=== PATIENT | female | born 1965 | race Caucasian/White ===

== ENCOUNTER → 2021-02-04 11:11 | Outpatient (CLI) | payer OTHER, SELFPAY ==
--- NOTE | 2021-02-04 11:13 | DI.MG.S_ITS ---
BILATERAL DIGITAL SCREENING MAMMOGRAM 3D/2D WITH CAD: 02/04/2021 Comparison is made to exams dated: 03/28/2017 mammogram, 03/01/2016 mammogram, and 02/16/2016 mammogram - [facility]. There are scattered fibroglandular elements in both breasts. Current study was also evaluated with a Computer Aided Detection (CAD) system. No significant masses, calcifications, or other findings are seen in either breast. There has been no significant interval change. IMPRESSION: NEGATIVE There is no mammographic evidence of malignancy. A 1 year screening mammogram is recommended. This exam was interpreted at Station ID: [id number]. NOTE: For mammograms, a report in lay terms will be sent to the patient. Approximately 15% of breast malignancies will not be visualized mammographically. In the management of a palpable breast mass, a negative mammogram must not discourage biopsy of a clinically suspicious lesion. Electronically Signed By: Julio collins/genaro:02/06/2021 08:51:52 letter sent: Normal Exam ACR BI-RADS Category 1: Negative [id number]
== END ==
PROVIDERS: PCP Family Medicine; Referring Provider Family Medicine; Visit Provider Family Medicine
DX: Z12.31 Encounter for screening mammogram for malignant neoplasm of breast (principal)
CPT/HCPCS: 77063; 77067

== ENCOUNTER → 2021-03-10 08:34 | Outpatient (CLI) | payer OTHER, SELFPAY ==
[2021-03-10] MEDS: COVID-19 VACC #3, MRNA(MOD) 50 MCG/0.25 ML VIAL IM (08:46)
== END ==
PROVIDERS: PCP Family Medicine; Visit Provider Internal Medicine
DX: Z23 Encounter for immunization (principal)
CPT/HCPCS: 0013A; 91301

== ENCOUNTER 2021-10-12 20:35 | Emergency (ER) | payer OTHER, SELFPAY ==
[2021-10-12] VITALS (13 sets, daily range): BP systolic 147–181; BP diastolic 80–91; PULSE 71–85; RESP 18–23; TEMP 36.7; O2SAT 96–99; BMI 27.3
--- NOTE | 2021-10-12 20:52 | DI.RAD.S_ITS ---
PROCEDURE: XR SHOULDER LT MIN 2V INDICATIONS: fall with deformity to shoulder TECHNIQUE: 3 views of the shoulder were acquired. COMPARISON: [facility], CR, XR SHOULDER LT MIN 2V, 10/12/2021, 22:03. FINDINGS: Bones: There is anterior dislocation of the left glenohumeral joint. There is mild depression along the superolateral aspect of the humeral head suggestive of a Hill-Sachs impaction fracture. No suspicious bony lesions. Visualized ribs appear intact. Soft tissues: There are small bony fragments along the inferior glenoid suggestive of a bony Bankart fracture. IMPRESSION: 1. Anterior dislocation of the left glenohumeral joint. 2. Suspected small Hill-Sachs lesion and small fracture fragments possibly from a bony Bankart. Consider follow-up CT if clinically indicated. Dictated by: Tariq Morse M.D. on 10/12/2021 at 22:45 Approved by: Tariq Morse M.D. on 10/12/2021 at 22:47
--- NOTE | 2021-10-12 20:53 | DI.RAD.S_ITS ---
PROCEDURE: XR RIBS LT MIN 3V W CXR1V INDICATIONS: fall with pain to ribs TECHNIQUE: Two views of the left ribs were acquired, along with a single view chest. COMPARISON: [facility], CR, XR SHOULDER LT MIN 2V, 10/12/2021, 20:54. [facility], CR, XR SHOULDER LT MIN 2V, 10/12/2021, 22:03. FINDINGS: Surgical changes and devices: None. Bones and chest wall: No displaced rib fracture identified. There is anteroinferior dislocation of the left glenohumeral joint. No suspicious bony lesions. Overlying soft tissues appear unremarkable. Lungs and pleura: No pleural effusions or pneumothorax. Lungs appear clear. Mediastinum: Mediastinal contours appear normal. Heart size is normal. IMPRESSION: 1. No displaced rib fracture identified. 2. Anteroinferior dislocation of the left glenohumeral joint. Recommend correlation with concurrent study of the shoulder. Dictated by: Tariq Morse M.D. on 10/12/2021 at 22:47 Approved by: Tariq Morse M.D. on 10/12/2021 at 22:48
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
[2021-10-12] MEDS: ONDANSETRON 4 MG/2 ML INJ IV (21:05)
[2021-10-12] MEDS: HYDROMORPHONE 0.5 MG INJ IV ×2 (21:05→21:40)
[2021-10-12] MEDS: propofoL 200 MG/20 ML VIAL 100 MG IV (21:55)
[2021-10-12] MEDS: propofoL 200 MG/20 ML VIAL 20 MG IV (22:01)
--- NOTE | 2021-10-12 22:04 | DI.RAD.S_ITS ---
PROCEDURE: XR SHOULDER LT MIN 2V INDICATIONS: post-reduction TECHNIQUE: 2 views of the shoulder were acquired. COMPARISON: [facility], CR, XR SHOULDER LT MIN 2V, 10/12/2021, 20:54. FINDINGS: Bones: There is interval reduction of the previously dislocated left glenohumeral joint. No discrete fracture identified on the current study. There is mild acromioclavicular joint degeneration. No suspicious bony lesions. Visualized ribs appear intact. Soft tissues: No suspicious soft tissue calcifications. IMPRESSION: 1. Interval reduction of the previously dislocated left glenohumeral joint. 2. Suspected Hill-Sachs and bony Bankart fractures seen on the prior study not visualized on the current exam. If clinical concern persists, consider follow-up CT. Dictated by: Tariq Morse M.D. on 10/12/2021 at 23:20 Approved by: Tariq Morse M.D. on 10/12/2021 at 23:21
[2021-10-12] MEDS: SODIUM CHLORIDE 0.9% 1,000 ML 125 ML IV (22:26)
--- NOTE | 2021-10-12 22:27 | PC.NURSE ---
Procedural sedation Propofol doses given as follows: 50mg @ 2155 20mg @ 2156 20mg @2157 10mg @2159 20mg @2201 All doses given IV push by Dr. Guerrero. Total Propofol given was 120mg. This RN, Jenny RN, Sushma RT, and Dr. Guerrero present at bedside during entire procedural sedation procedure. Post-reduction Xray obtained.
[2021-10-12] MEDS: HYDROCODONE/ACET 5/325 PREPACK 1 BOTTLE MISC (23:07)
== END 2021-10-12 23:18 | disposition home or self-care (01) ==
PROVIDERS: Emergency Provider Emergency Medicine; PCP Family Medicine
DX: S43.015A Anterior dislocation of left humerus, initial encounter (principal); R07.81 Pleurodynia; V19.9XXA Pedal cyclist (driver) (passenger) injured in unspecified traffic accident, initial encounter
CPT/HCPCS: 23650; 71101; 73030; 96374; 96375; 99152; 99284; 99285; J1170; J2405; J2704

== ENCOUNTER → 2022-04-19 13:50 | Outpatient (CLI) | payer OTHER, SELFPAY ==
--- NOTE | 2022-04-19 13:56 | DI.RAD.S_ITS ---
PROCEDURE: XR HAND LT MIN 3V INDICATIONS: Left hand injury TECHNIQUE: 3 views of the hand(s) acquired. COMPARISON: None. FINDINGS: Bones: There is a comminuted fracture involving the proximal 4th metacarpal shaft with mild displacement. It probably does not involve the proximal 4th carpometacarpal articular surface. Carpal bones are normally aligned. No suspicious bony lesions. Mild degenerative joint disease at the radiocarpal joint, triscaphe joint, 1st carpometacarpal joint, 1st metacarpophalangeal joint and multiple interphalangeal joint. Soft tissues: No suspicious soft tissue calcifications. IMPRESSION: 1. Comminuted proximal 4th metacarpal shaft fracture. 2. Mild degenerative joint disease. Dictated by: Tu Julian M.D. on 04/19/2022 at 14:05 Approved by: Tu Julian M.D. on 04/19/2022 at 14:12
== END ==
PROVIDERS: PCP Family Medicine; Referring Provider Family Medicine; Visit Provider Family Medicine
DX: S62.325A Displaced fracture of shaft of fourth metacarpal bone, left hand, initial encounter for closed fracture (principal); M18.12 Unilateral primary osteoarthritis of first carpometacarpal joint, left hand; M19.042 Primary osteoarthritis, left hand; M19.032 Primary osteoarthritis, left wrist; X58.XXXA Exposure to other specified factors, initial encounter
CPT/HCPCS: 73130

== ENCOUNTER → 2022-05-03 17:30 | Outpatient (CLI) | payer OTHER, SELFPAY ==
--- NOTE | 2022-05-03 | DI.RAD.S_ITS ---
PROCEDURE: XR HAND LT MIN 3V INDICATIONS: fracture TECHNIQUE: 3 views of the hand(s) acquired. COMPARISON: [facility], CR, XR HAND LT MIN 3V, 04/19/2022, 14:00. FINDINGS: Bones: Overlying casting material obscures fine bony detail. Similar appearance and alignment of the previously demonstrated mildly displaced fracture of the 4th metacarpal. Carpal bones are normally aligned. No suspicious bony lesions. Soft tissues: No suspicious soft tissue calcifications. IMPRESSION: Similar appearance and alignment of the 4th metacarpal fracture. Dictated by: Jordan Maier M.D. on 05/04/2022 at 18:07 Approved by: Jordan Maier M.D. on 05/04/2022 at 18:12
--- NOTE | 2022-05-03 | DI.RAD.S_ITS ---
PROCEDURE: XR LUMBAR SPINE 2-3V INDICATIONS: Low back pain. TECHNIQUE: 3 views of the lumbar spine were acquired. COMPARISON: None. FINDINGS: Bones: 5 [id number] vertebrae are present. No significant curvature or listhesis of the lumbar spine. Minimal-mild multilevel degenerative changes with disc height loss, endplate spurring, and facet arthropathy. No vertebral body compression fractures. No suspicious bony lesions. Soft tissues: Overlying bowel gas pattern is normal. No suspicious soft tissue calcifications. IMPRESSION: Minimal-mild lumbar spine degenerative changes. Dictated by: Jordan Maier M.D. on 05/04/2022 at 18:14 Approved by: Jordan Maier M.D. on 05/04/2022 at 18:16
--- NOTE | 2022-05-03 | DI.RAD.S_ITS ---
PROCEDURE: XR FINGER RT MIN 2V INDICATIONS: Right first digit arthritis. TECHNIQUE: AP hand, 2 views of the 1st digit acquired. COMPARISON: None. FINDINGS: Bones: No fractures or dislocations. No suspicious bony lesions. Moderate 1st CMC joint degenerative changes. Mild scattered IP joint degenerative changes. Soft tissues: No suspicious soft tissue calcifications. IMPRESSION: Moderate 1st CMC joint degenerative changes. Dictated by: Jordan Maier M.D. on 05/04/2022 at 18:12 Approved by: Jordan Maier M.D. on 05/04/2022 at 18:14
== END ==
PROVIDERS: PCP Family Medicine; Referring Provider Family Medicine; Visit Provider Family Medicine
DX: S62.305A Unspecified fracture of fourth metacarpal bone, left hand, initial encounter for closed fracture (principal); M19.041 Primary osteoarthritis, right hand; M54.50 Low back pain, unspecified
CPT/HCPCS: 72100; 73130; 73140

== ENCOUNTER → 2023-02-28 07:32 | Outpatient (CLI) | payer OTHER, SELFPAY ==
--- NOTE | 2023-02-28 | DI.MG.S_ITS ---
BILATERAL DIGITAL SCREENING MAMMOGRAM 3D/2D WITH CAD: 02/28/2023 CLINICAL: Routine screening. Comparison is made to exams dated: 02/04/2021 mammogram, 03/28/2017 mammogram, and 02/16/2016 mammogram - [facility]. There are scattered areas of fibroglandular density in both breasts (category b / 25%-50% glandular tissue). Current study was also evaluated with a Computer Aided Detection (CAD) system. No significant masses, calcifications, or other findings are seen in either breast. There has been no significant interval change. IMPRESSION: NEGATIVE There is no mammographic evidence of malignancy. A 1 year screening mammogram is recommended. Based on the Tyrer Cuzick model (a risk assessment model) the patient's lifetime risk is 8.2% and her 10 year risk is 2.5%. According to the ACR, ACS, and NCCN guidelines, an annual breast MRI exam along with mammogram is recommended if the patient's lifetime risk is 20% or greater. This exam was interpreted at Station ID: [id number]. NOTE: For mammograms, a report in lay terms will be sent to the patient. Approximately 15% of breast malignancies will not be visualized mammographically. In the management of a palpable breast mass, a negative mammogram must not discourage biopsy of a clinically suspicious lesion. Electronically Signed By: Julio collins/genaro:02/28/2023 13:06:54 letter sent: Normal Exam ACR BI-RADS Category 1: Negative 3341F
== END ==
PROVIDERS: PCP Family Medicine; Referring Provider Family Medicine; Visit Provider Family Medicine
DX: Z12.31 Encounter for screening mammogram for malignant neoplasm of breast (principal)
CPT/HCPCS: 77063; 77067

== ENCOUNTER → 2024-03-20 17:17 | Outpatient (CLI) | payer OTHER, SELFPAY ==
--- NOTE | 2024-03-20 17:19 | DI.MG.S_ITS ---
BILATERAL DIGITAL SCREENING MAMMOGRAM 3D/2D WITH CAD: 03/20/2024 CLINICAL: Routine screening. Comparison is made to exams dated: 02/28/2023 mammogram, 02/04/2021 mammogram, and 03/28/2017 mammogram - [facility]. There are scattered areas of fibroglandular density (category b / 25%-50% glandular tissue). Current study was also evaluated with a Computer Aided Detection (CAD) system. No significant masses, calcifications, or other findings are seen in either breast. There has been no significant interval change. IMPRESSION: NEGATIVE There is no mammographic evidence of malignancy. A 1 year screening mammogram is recommended. Based on the Tyrer Cuzick model (a risk assessment model) the patient's lifetime risk is 8.1% and her 10 year risk is 2.6%. According to the ACR, ACS, and NCCN guidelines, an annual breast MRI exam along with mammogram is recommended if the patient's lifetime risk is 20% or greater. This exam was interpreted at Station ID: [id number]. NOTE: For mammograms, a report in lay terms will be sent to the patient. Approximately 15% of breast malignancies will not be visualized mammographically. In the management of a palpable breast mass, a negative mammogram must not discourage biopsy of a clinically suspicious lesion. Electronically Signed By: Toni zimmerman/genaro:03/23/2024 07:31:49 letter sent: Normal Exam ACR BI-RADS Category 1: Negative
== END ==
LOC: MAMMO 17:18
PROVIDERS: Family Provider Family Medicine; PCP Family Medicine; Referring Provider Family Medicine; Visit Provider Family Medicine
DX: Z12.31 Encounter for screening mammogram for malignant neoplasm of breast (principal)
CPT/HCPCS: 77063; 77067

== ENCOUNTER → 2025-04-03 11:43 | Outpatient (CLI) | payer OTHER, SELFPAY ==
--- NOTE | 2025-04-03 11:44 | DI.MG.S_ITS ---
MM screening mammo BI: 04/03/2025. BI-RADS: 1 CLINICAL: 59-year old female for bilateral screening mammogram. Tyrer-Cuzick lifetime risk of 6.8%. No personal or first-degree family history of breast cancer. PRIOR EXAMS 03/20/2024, 02/28/2023, 02/04/2021, 03/28/2017, MAMMOGRAPHY TECHNIQUE: 2D and 3D (tomosynthesis) digital mammographic views obtained, with additional images as needed for full coverage. Current study was also evaluated with a Computer Aided Detection (CAD) system. DENSITY B. There are scattered areas of fibroglandular density. MAMMOGRAPHY FINDINGS Bilateral: No suspicious mass, asymmetry, microcalcification, or other abnormality seen. IMPRESSION: * No evidence of malignancy. RECOMMENDATIONS Bilateral * Annual screening mammography. OVERALL ASSESSMENT CATEGORY BI-RADS-1: Negative. The [employer] recommends annual screening mammography beginning at age 40 for women with average risk of breast cancer. ELECTRONICALLY SIGNED: Toni Salinas M.D. on 04/04/2025 at 09:10:22 PM PT Interpreting Station ID: [id number]
== END ==
LOC: MAMMO 11:44
PROVIDERS: Family Provider Family Medicine; PCP Family Medicine; Referring Provider Family Medicine; Visit Provider Family Medicine
DX: Z12.31 Encounter for screening mammogram for malignant neoplasm of breast (principal)
CPT/HCPCS: 77063; 77067